=== PATIENT | female | born 1970 | race Caucasian/White ===

== ENCOUNTER 2017-06-24 10:12 | Emergency (ER) | payer BC, MEDICAID ==
[~2017-06-24] VITALS: Ht 177.8 cm; Wt 119.8 kg
[2017-06-24] MEDS ORDERED: ALBUTEROL INH (10:35)
[2017-06-24] MEDS ORDERED: ALBUTEROL/IPRATROPIUM 2.5MG/0.5MG, 3 ML ONE (10:49)
[2017-06-24] MEDS ORDERED: ALBUTEROL SULFATE 2.5 MG/3 ML NPPB SCH (11:00)
[2017-06-24] MEDS ORDERED: IPRATROPIUM 0.5 MG/2.5 ML INHA NPPB ONE (11:00)
[2017-06-24 12:48] VITALS: BP 152/70
== END 2017-06-24 12:50 | disposition home or self-care (01) ==
LOC: ED 11:41
DX: J45.41 Moderate persistent asthma with (acute) exacerbation (principal); F17.200 Nicotine dependence, unspecified, uncomplicated
CPT/HCPCS: 71020; 94640; 99284; J7512; J7613; J7644

== ENCOUNTER 2017-08-20 15:44 | Emergency (ER) | payer BC, OTHER ==
[~2017-08-20] VITALS: Ht 177.8 cm; Wt 116.4 kg
[~2017-08-20 15:44] MED LIST: ALBUTEROL INH
[2017-08-20 15:59] VITALS: BP 162/113
== END 2017-08-20 16:36 | disposition home or self-care (01) ==
LOC: ED 16:00
DX: K08.89 Other specified disorders of teeth and supporting structures (principal); R51 Headache; J45.909 Unspecified asthma, uncomplicated
CPT/HCPCS: 99283